=== PATIENT | male | born 2000 | race Two or more races ===

== ENCOUNTER 2021-08-12 02:16 | Emergency (ER) | payer MEDICAID ==
[~2021-08-12] VITALS: Ht 172.7 cm; Wt 81.6 kg
[2021-08-12] MEDS ORDERED: OXYCODONE W/ ACETAMINOPHEN 5/325MG TABLET PO ONE (04:15)
[2021-08-12] MEDS ORDERED: methylPREDNISolone SOD SUCC 125 MG/2 ML VL IV ONE (06:30)
[2021-08-12] MEDS ORDERED: ONDANSETRON HCL 4 MG/2 ML VIAL IV ONE (06:30)
[2021-08-12] MEDS ORDERED: MORPHINE SULFATE 4 MG/ML SYR/VIAL IV ONE (06:30)
[2021-08-12 08:00] VITALS: BP 130/70
[2021-08-12] MEDS ORDERED: KETOROLAC TROMETH 30 MG/ML 1ML VIAL IV ONE (08:00)
[2021-08-12] MEDS ORDERED: HYDR1TAB97 PO (08:11)
[2021-08-12] MEDS ORDERED: PRED20TA2 PO (08:11)
== END 2021-08-12 08:41 | disposition home or self-care (01) ==
LOC: EDBD 02:16 → ER 02:16
DX: M54.41 Lumbago with sciatica, right side (principal); M79.604 Pain in right leg
CPT/HCPCS: 74176; 96374; 96375; 99285; J1885; J2270; J2405; J2930

== ENCOUNTER 2022-04-15 19:56 | Emergency (ER) | payer MEDICAID ==
[~2022-04-15] VITALS: Ht 175.3 cm; Wt 84.0 kg
[~2022-04-15 19:56] MED LIST: HYDR1TAB97 PO; PRED20TA2 PO
[2022-04-15 20:00] VITALS: BP 145/75
[2022-04-15] MEDS: LORazepam 2MG/ML-1ML VIAL IM ONE ×2 (20:11→20:18)
[2022-04-15] MEDS ORDERED: LORazepam 2MG/ML-1ML VIAL IM ONE (20:15)
[2022-04-15 21:03] LABS: Basophils # (auto) 0 10 ^3/uL (0-0.2); Basophils % (auto) 0.1 % (0.0-2.0); Eosinophils # (auto) 0 10 ^3/uL (0-0.8); Hematocrit 48.8 % (41.0-53.0); Hemoglobin 16.8 g/dL (13.5-17.5); Lymphocytes # (auto) 2.8 10 ^3/uL (0.4-5.4); Lymphocytes % (auto) 23.5 % (10.0-50.0); Mean Corpuscular Hemoglobin 31.6 pg (28.0-32.0); Mean Corpuscular Hgb Conc. 34.5 g/dL (32.0-36.0); Mean Corpuscular Volume 91.6 fL (80.0-100.0); Monocytes # (auto) 0.7 10 ^3/uL (0-1.3); Monocytes % (auto) 5.6 % (0.0-12.0); Neutrophils # (auto) 8.4 10 ^3/uL (1.6-8.6); Neutrophils % (auto) 70.8 % (37.0-80.0); Nucleated Red Blood Cells % 0.2 %; Red Blood Cells 5.33 10^6/uL (4.5-5.90); Red Cell Distribution Width 13.6 % (11.8-14.3); White Blood Cell 11.9 10^3/uL (4.4-10.8)
[2022-04-15 21:19] LABS: Albumin 4.7 g/dL (3.4-5.0); CRP High Sensitivity 0.04 mg/dL (< 0.3); Calcium 9.7 mg/dL (8.5-10.1); Potassium 3.7 mmol/L (3.5-5.1)
[2022-04-15 21:22] LABS: BUN/Creatinine Ratio 15.7; Bilirubin, Total 0.5 mg/dL (0.2-1.0); Total Protein 7.9 g/dL (6.4-8.2)
[2022-04-15 21:29] LABS: Urine Bacteria NONE SEEN /hpf (None Seen); Urine Blood Negative /uL (Negative); Urine Mucus FEW (None Seen); Urine Specific Gravity 1.032 (1.001-1.035); Urine WBC 1 /hpf (0 - 3)
[2022-04-15 21:38] LABS: Amphetamine Screen, Urine NEGATIVE (NEGATIVE); Barbiturate Scree,Urine NEGATIVE (NEGATIVE); Benzodiazephine Screen, Urine NEGATIVE (NEGATIVE); Cannabinoid Screen, Urine POSITIVE (NEGATIVE); Cocaine Screen, Urine NEGATIVE (NEGATIVE)
[2022-04-15 21:46] LABS: Opiate Scree,Urine NEGATIVE (NEGATIVE); Phencyclidine Screen, Urine NEGATIVE (NEGATIVE)
[2022-04-15] MEDS ORDERED: ALPR0.5T PO (23:05)
== END 2022-04-15 22:30 | disposition left against medical advice (07) ==
LOC: ER 19:56
DX: F41.9 Anxiety disorder, unspecified (principal); R07.89 Other chest pain
CPT/HCPCS: 36415; 71045; 80053; 80307; 81001; 84484; 85025; 86141; 93005; 96372; 99285; J2060

== ENCOUNTER 2024-04-15 07:23 | Emergency (ER) | payer MEDICAID ==
[~2024-04-15] VITALS: Ht 167.6 cm; Wt 87.7 kg
[~2024-04-15 07:23] MED LIST changes: +ALPR0.5T PO
[2024-04-15 08:12] VITALS: BP 122/76; PULSE 82; RESP 18; TEMP 97.8; O2SAT 99
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
[2024-04-15] MEDS ORDERED: METH-1181 PO (09:31)
[2024-04-15] MEDS ORDERED: IBUP-1454 PO (09:31)
--- NOTE | 2024-04-15 09:31 | ED.PDOC ---
Eye-HPI HPI Comments 23-year-old male with no MHx presents with a chief complaint of left mandible pain x2 weeks. Pain started after he hit his jaw on [employer]V handle bars. Has been complaining of left-sided mandible pain since. Worsens with any jaw movement. Denies persistent nausea Denies vomiting Denies hitting head Denies focal loss of strength/sensation or changes in speech Chief Complaint: Jaw Pain Time Seen by MD: 07:37 Primary Care Provider: None Reviewed Notes: Nurses Notes, Medications, Allergies Allergies: Coded Allergies: NO KNOWN ALLERGIES (Unverified , 08/12/21) Home Meds Active Scripts Alprazolam (Xanax) 0.5 Mg Tb, 1 TAB PO TIDP PRN, #20 TAB Prov:CRISTIAN MOHR PAC 04/15/22 Hydrocodone-Acetaminophen (Hydrocodone/Acetaminophen 5-325 mg) 1 Tab Tab, 1 TAB PO BID, #14 TAB Prov:SLOANE CAI 08/12/21 Prednisone (Prednisone) 20 Mg Tab, 40 MG PO DAILY, #20 MG Prov:SLOANE CAI 08/12/21 Information Source: Patient Mode of Arrival: Ambulatory Past Medical History PAST MEDICAL HISTORY: Denies Surgical History: Denies all surgeries Family History Family History: Reviewed,noncontributory to illness Social History Smoker: Non-Smoker Alcohol: Occasionally Drugs: Marijuana Lives In: Home All Other Systems: Reviewed and Negative (Per HPI) Physical Exam General Appearance: No Apparent Distress, Normal HEENT: Normal ENT Inspection, Pharynx Normal, TMs Normal, Other (Jaw appear normal. no abnormalites noted. ful rom) Neck: Full Range of Motion, Non-Tender, Normal, Normal Inspection Respiratory: Chest Non-Tender, Lungs Clear, No Accessory Muscle Use, No Respiratory Distress, Normal Breath Sounds Cardiovascular: No Edema, No JVD, No Murmur, No Gallop, Normal Peripheral Pulses, Regular Rate/Rhythm Breast Exam: Deferred Gastrointestinal: No Organomegaly, Non Tender, No Pulsatile Mass, Normal Bowel Sounds, Soft Genitalia: Deferred Pelvic: Deferred Rectal: Deferred Extremities: No calf tenderness, Normal capillary refill, Normal inspection, Normal range of motion, Non-tender, No pedal edema Musculoskeletal : Apperance: Normal Neurologic: Alert, No Motor Deficits, Normal Affect, Normal Mood, No Sensory Deficits Cerebellar Function: Normal Reflexes: Normal Skin: Dry, Normal Color, Warm Lymphatic: No Adenopathy Was a procedure done? Was a procedure done?: No EENT DIFF Eye: Other X-Ray, Labs, Meds, VS Vital Signs Date Time Temp Pulse Resp B/P (MAP) Pulse Ox O2 Delivery O2 Flow Rate FiO2 04/15/24 08:12 82 18 99 Room Air 04/15/24 08:12 97.8 82 18 122/76 (91) 99 97.8 04/15/24 07:43 97.5 68 18 121/65 (83) 98 97.5 04/15/24 07:34 97.3 82 15 127/79 (95) 99 X-Ray, Labs, Meds, VS Comment On reevaluation, patient had symptomatic improvement. Patient is stable for discharge at this time. External notes reviewed. Test results and diagnostic imaging interpreted. All diagnostic findings, discharge care, education and instructions provided Follow-up with PCP in 2 to 3 days Trial of NSAIDs and muscle relaxers Patient verbalized understanding and agreed to treatment plan Vital signs stable, afebrile, no acute distress noted Patient ambulatory with strong steady gait Advised to return precautions for any new or worsening symptoms, return to ER immediately for re-evaluation Patient is aware that the purpose of this visit was for an acute medical emergency requiring emergent stabilization. Chronic conditions, including malignancies have not been ruled out. Patient is instructed to follow up with PCP as directed and discharge instructions for continued care and workup. If unable to arrange follow-up, patient is to return to the emergency department for reassessment. Patient (parent or legal guardian if applicable) was given verbal and written discharge instructions and acknowledges understanding. Time of 1ST Reevaluation: 09:28 Reevaluation 1ST: Improved Patient Education/Counseling: Diagnosis, Treatment Family Education/Counseling: Diagnosis, Treatment Departure 1 Departure Time of Disposition: 09:29 Impression: Primary Impression: Mandible pain Disposition: HOME / SELF CARE / HOMELESS Condition: Stable e-Prescriptions Ibuprofen (Ibuprofen) 600 Mg Tab 1 TAB PO TID for 10 Days, #30 TAB 0 Refills Prov: GISELLA WELLS [employer] 04/15/24 Methocarbamol (Methocarbamol) 500 Mg Tab 500 MG PO Q8HPRN PRN for 10 Days, #30 TAB 0 Refills Prov: GISELLA WELLS [employer] WELDER 04/15/24 Critical Care Note Critical Care Time?: No Stability Stability form required: No Heart Score Heart Score: Heart Score Response (Comments) Value History N/A 0 EKG N/A 0 Age N/A 0 Risk Factors N/A 0 Troponin N/A 0 Total 0 GISELLA WELLS NP Apr 15, 2024 09:31
== END 2024-04-15 09:54 | disposition home or self-care (01) ==
LOC: ER 07:23
DX: R68.84 Jaw pain (principal); F12.90 Cannabis use, unspecified, uncomplicated; Z79.899 Other long term (current) drug therapy; W22.8XXA Striking against or struck by other objects, initial encounter; Y93.89 Activity, other specified; Y92.410 Unspecified street and highway as the place of occurrence of the external cause; Y99.8 Other external cause status
CPT/HCPCS: 70486